=== PATIENT | male | born 1995 | race Hispanic/Latino ===

== ENCOUNTER 2024-01-06 07:44 | Emergency (ER) | payer SELFPAY ==
[2024-01-06] MEDS ORDERED: Sulfameth/Trimethoprim DS 800-160mg TAB ONE (08:27)
== END 2024-01-06 08:35 | disposition home or self-care (01) ==
LOC: NAV ERS 07:44
DX: Z48.00 Encounter for change or removal of nonsurgical wound dressing (principal); L72.0 Epidermal cyst; F17.290 Nicotine dependence, other tobacco product, uncomplicated
CPT/HCPCS: 99282